=== PATIENT | female | born 1995 | race Caucasian/White ===

== ENCOUNTER 2020-11-05 04:43 | Emergency (ER) | payer OTHER ==
[~2020-11-05] VITALS: Ht 165.1 cm; Wt 127.0 kg
[2020-11-05] MEDS ORDERED: PROVERA5 MG PO (05:01)
[2020-11-05 05:14] LABS: URINE BILIRUBIN NEGATIVE (Negative); URINE BLOOD NEGATIVE (Negative); URINE CLARITY CLEAR; URINE COLOR YELLOW; URINE GLUCOSE-RANDOM NEGATIVE (Negative); URINE KETONES NEGATIVE (Negative); URINE NITRITE-REFLEX NEGATIVE (Negative); URINE PROTEIN NEGATIVE (Negative); URINE SPECIFIC GRAVITY <= 1.005 (1.005-1.030); URINE UROBILINOGEN 0.2 E.U./dl (0.2-1.0)
[2020-11-05 05:18] LABS: URINE LEUKOCYTES-REFLEX 2+ (Negative)
[2020-11-05 05:23] LABS: ABSOLUTE BASOPHILS 0.1 thou/uL (0.0-0.2); ABSOLUTE EOSINOPHILS 0.1 thou/uL (0.0-0.7); ABSOLUTE LYMPHOCYTES 2.5 thou/uL (0.8-5.3); ABSOLUTE MONOCYTES 0.6 thou/uL (0.0-1.2); ABSOLUTE NEUTROPHILS 4.4 thou/uL (1.6-8.1); BASOPHILS 0.8 %; EOSINOPHILS 1.8 %; HEMATOCRIT 38.9 % (37.0-47.0); HEMOGLOBIN 13.2 gm/dL (12.0-15.0); LYMPHOCYTES 32.5 %; MCH 28.6 pg (26.0-34.0); MCHC 33.9 g/dL (28.0-37.0); MCV 84.5 fL (80.0-100.0); MONOCYTES 7.8 %; MPV 6.9 fl. (7.2-11.1); NUCLEATED RBCS 0 /100WBC; PLATELET COUNT* 281 thou/uL (150-400); POLYS 57.1 %; RDW-CV 14.5 % (10.5-14.5); WBC 7.8 thou/uL (4.0-11.0)
[2020-11-05 05:25] LABS: SQUAMOUS 4-10 Moderate /LPF (0-3); URINE WBC-REFLEX 6-15 Few /HPF (0-5)
[2020-11-05 05:26] LABS: BACTERIA-REFLEX 1-9 Few /HPF (None Seen); CASTS None Seen /LPF (None Seen); CRYSTALS None Seen /LPF (None Seen); MUCUS 0-3 Light strn/LPF (None Seen); URINE RBC 0-2 Rare /HPF (0-2)
[2020-11-05 05:33] LABS: CALCIUM 8.3 mg/dL (8.5-10.1); POTASSIUM 3.5 mmol/L (3.5-5.1)
[2020-11-05 05:38] LABS: ALBUMIN 3.5 g/dL (3.4-5.0); TOTAL BILIRUBIN 0.4 mg/dL (<0.1-1.0); TOTAL PROTEIN 6.9 g/dL (6.4-8.2)
[2020-11-05] MEDS ORDERED: HYDROCODON-ACE1 EAC7 PO (09:45)
[2020-11-05] MEDS ORDERED: CEPHALEXIN500 MG PO (09:45)
[2020-11-05] MEDS ORDERED: ZOFRAN ODT4 MG DISSOLVE (09:45)
[2020-11-05] MEDS ORDERED: CARAFATE 1 GM TA1 G1 PO (09:45)
[2020-11-05 10:00] VITALS: BP 122/76
== END 2020-11-05 10:00 | disposition home or self-care (01) ==
LOC: M.ERS 04:43
PROVIDERS: Personal Emergency Response Attendant
DX: N39.0 Urinary tract infection, site not specified (principal); Z20.822 Contact with and (suspected) exposure to COVID-19; R11.2 Nausea with vomiting, unspecified

== ENCOUNTER → 2020-11-15 | Outpatient (CLI) | payer OTHER ==
[~2020-11-15] MED LIST: CARAFATE 1 GM TA1 G1 PO; CEPHALEXIN500 MG PO; HYDROCODON-ACE1 EAC7 PO; PROVERA5 MG PO; ZOFRAN ODT4 MG DISSOLVE
== END ==
LOC: M.NUC 12:32
PROVIDERS: ATTEND Internal Medicine
DX: R10.13 Epigastric pain (principal)

== ENCOUNTER → 2020-12-13 | Outpatient (CLI) | payer OTHER ==
[2020-12-13 15:56] LABS: ABSOLUTE BASOPHILS 0.1 thou/uL (0.0-0.2); ABSOLUTE EOSINOPHILS 0.1 thou/uL (0.0-0.7); ABSOLUTE LYMPHOCYTES 1.7 thou/uL (0.8-5.3); ABSOLUTE MONOCYTES 0.8 thou/uL (0.0-1.2); ABSOLUTE NEUTROPHILS 13.2 thou/uL (1.6-8.1); BASOPHILS 0.4 %; EOSINOPHILS 0.5 %; HEMATOCRIT 42.8 % (37.0-47.0); HEMOGLOBIN 14.4 gm/dL (12.0-15.0); MCH 28.4 pg (26.0-34.0); MCHC 33.7 g/dL (28.0-37.0); MCV 84.3 fL (80.0-100.0); MPV 7.1 fl. (7.2-11.1); NUCLEATED RBCS 0 /100WBC; PLATELET COUNT* 343 thou/uL (150-400); POLYS 83.1 %; RBC 5.08 mil/uL (4.20-5.00); RDW-CV 14.7 % (10.5-14.5); WBC 15.9 thou/uL (4.0-11.0)
[2020-12-13 16:11] LABS: ALBUMIN 3.9 g/dL (3.4-5.0); CALCIUM 9.1 mg/dL (8.5-10.1); POTASSIUM 4.7 mmol/L (3.5-5.1); TOTAL BILIRUBIN 0.4 mg/dL (<0.1-1.0); TOTAL PROTEIN 7.7 g/dL (6.4-8.2)
== END ==
LOC: M.LAB 15:21
PROVIDERS: ATTEND Surgery
DX: R10.9 Unspecified abdominal pain (principal); R11.0 Nausea; Z98.890 Other specified postprocedural states